=== PATIENT | female | born 1975 | race Two or more races ===

== ENCOUNTER 2022-08-25 07:14 | Outpatient (CLI) | payer OTHER | END 2022-08-25 07:25 | disposition home or self-care (01) | LOC: NUCLEAR 07:14 | PROVIDERS: ATTEND Internal Medicine | DX: C50.612 Malignant neoplasm of axillary tail of left female breast (principal); C77.3 Secondary and unspecified malignant neoplasm of axilla and upper limb lymph nodes ==

== ENCOUNTER 2023-01-29 06:40 | Day surgery (SDC) | payer OTHER ==
[2023-01-26 09:49] LABS: HEMATOCRIT 40.4 % (36.0-45.00); HEMOGLOBIN 13.8 g/dL (12.0-15.00); MEAN CELL VOLUME 86.4 fL (80.00-100.00); MEAN CORPUSCULAR HEMOGLOBIN 29.5 pg (27.00-32.0); MEAN CORPUSCULAR HGB CONC 34.2 g/dl (32.0-36.0); PLATELET COUNT 262 K/uL (150-450); RED BLOOD COUNT 4.68 M/uL (4.00-6.00); RED CELL DISTRIBUTION WIDTH 14.4 % (11.5-14.5)
[2023-01-26 10:16] LABS: INR 1.01; PARTIAL THROMBOPLASTIN TIME 28.1 SECONDS (22.0-34.0); PROTHROMBIN TIME 10.6 SECONDS (9.0-11.5)
[2023-01-26 10:20] LABS: ALBUMIN 3.9 gm/dL (3.4-5.0); BILIRUBIN TOTAL 0.96 mg/dL (0.3-1.2); CALCIUM 9.5 mg/dL (8.5-10.1); CREATININE SERUM 0.66 mg/dL (0.55-1.02); GFR 95.19; GLOBULINA 2.7 G/DL (2.4-3.5); POTASSIUM 3.62 mEq/L (3.5-5.1); TOTAL PROTEIN 6.6 gm/dL (6.4-8.2)
[2023-01-26 10:41] LABS: PH,URINE 7.5 (5.0-8.0); URINE APPEARANCE Cloudy; URINE BILIRRUBIN Negative (NEGATIVE); URINE BLOOD Negative; URINE COLOR Yellow; URINE GLUCOSE Negative (NEGATIVE); URINE LEUKOCYTE Negative; URINE NITRATE Negative; URINE PROTEIN Negative (NEGATIVE); URINE UROBILINOGEN 0.2 E.U./dl
[2023-01-26 10:50] LABS: URINE BACTERIA 52.9 uL (0.0-1933); URINE EPITHELIAL CELLS 1.9 uL (0.0-38.8); URINE WBC 2.2 uL (0.0-23.2)
[2023-01-26 10:51] LABS: URINE RBC 0.5 uL (0.0-20.8)
[~2023-01-29 06:40] MED LIST: HYZAAR 100-251 EACH PO
== END 2023-01-29 21:25 | disposition home or self-care (01) ==
LOC: CIR.AMB 06:40
PROVIDERS: ATTEND Surgery
DX: C50.412 Malignant neoplasm of upper-outer quadrant of left female breast (principal); C77.3 Secondary and unspecified malignant neoplasm of axilla and upper limb lymph nodes; D48.61 Neoplasm of uncertain behavior of right breast; N60.81 Other benign mammary dysplasias of right breast; R92.1 Mammographic calcification found on diagnostic imaging of breast; Z80.3 Family history of malignant neoplasm of breast; Z90.13 Acquired absence of bilateral breasts and nipples; N62 Hypertrophy of breast

== ENCOUNTER 2023-05-14 06:00 | Day surgery (SDC) | payer OTHER ==
[2023-05-13 10:10] LABS: URINE BACTERIA 16.3 uL (0.0-1933); URINE RBC 26.2 uL (0.0-20.8); URINE WBC 7.7 uL (0.0-23.2)
[2023-05-13 10:12] LABS: HEMATOCRIT 39.3 % (36.0-45.00); HEMOGLOBIN 13.5 g/dL (12.0-15.00); MEAN CELL VOLUME 83.2 fL (80.00-100.00); MEAN CORPUSCULAR HEMOGLOBIN 28.6 pg (27.00-32.0); MEAN CORPUSCULAR HGB CONC 34.4 g/dl (32.0-36.0); PLATELET COUNT 240 K/uL (150-450); RED BLOOD COUNT 4.72 M/uL (4.00-6.00); RED CELL DISTRIBUTION WIDTH 13.4 % (11.5-14.5)
[2023-05-13 10:29] LABS: INR 1.02; PARTIAL THROMBOPLASTIN TIME 28.5 SECONDS (22.0-34.0)
[2023-05-13 10:30] LABS: CALCIUM 9.4 mg/dL (8.5-10.1); CREATININE SERUM 0.76 mg/dL (0.55-1.02); GFR 80.88; POTASSIUM 3.98 mEq/L (3.5-5.1)
[2023-05-13 10:43] LABS: PROTHROMBIN TIME 10.7 SECONDS (9.0-11.5)
[2023-05-13 11:00] LABS: PH,URINE 7.5 (5.0-8.0); URINE APPEARANCE Clear; URINE BILIRRUBIN Negative (NEGATIVE); URINE BLOOD Negative; URINE COLOR Yellow; URINE GLUCOSE Negative (NEGATIVE); URINE LEUKOCYTE Trace; URINE NITRATE Negative; URINE PROTEIN Negative (NEGATIVE); URINE UROBILINOGEN 0.2 E.U./dl
[2023-05-14] MEDS ORDERED: CLINDAMYCIN PHOSPHATE 150 MG/ML (900mg) ONE (10:11)
[2023-05-14] MEDS ORDERED: GENTAMICIN SULFATE 40 MG/ML VIAL ONE (11:30)
[2023-05-14] MEDS ORDERED: VANCOMYCIN HCL 1,000 MG VIAL ONE ×2 (11:30→12:22)
[2023-05-14] MEDS ORDERED: POVIDONE-IODINE 118 ML BOTT TOP ONE ×4 (11:30→14:00)
[2023-05-14] MEDS ORDERED: LIDOCAINE HCL/EPINEPHRINE 1% 50ML VIAL IJ ONE (11:31)
[2023-05-14] MEDS ORDERED: POVIDONE-IODINE SCRUB 118 ML BOTT TOP ONE ×2 (11:32→14:00)
[2023-05-14] MEDS ORDERED: GENTAMICIN SULFATE/PF 10 MG/ML VIAL IM ONE (14:00)
[2023-05-14] MEDS ORDERED: VANCOMYCIN HCL 1,000 MG VIAL IV ONE (14:00)
[2023-05-14] MEDS ORDERED: CLINDAMYCIN PHOSPHATE 150 MG/ML (900mg) IV SCH (14:00)
[2023-05-14] MEDS ORDERED: MORPHINE SULFATE 4 MG/ML VIAL IV PRN (14:45)
[2023-05-14] MEDS ORDERED: ONDANSETRON HCL 2 MG/ML VIAL IV PRN (14:45)
[2023-05-14] MEDS ORDERED: ENALAPRILAT DIHYDRATE 1.25 MG/ML VIAL IV ONE ×2 (16:43→17:08)
== END 2023-05-14 18:40 | disposition home or self-care (01) ==
LOC: CIR.AMB 06:00
PROVIDERS: ATTEND Plastic Surgery
DX: Z90.11 Acquired absence of right breast and nipple (principal); N65.0 Deformity of reconstructed breast